=== PATIENT | male | born 1955 | race Caucasian/White ===

== ENCOUNTER 2017-11-09 13:41 | Emergency (ER) | payer SELFPAY ==
[~2017-11-09] VITALS: Ht 182.9 cm; Wt 103.0 kg
[2017-11-09] MEDS ORDERED: CEFTRIAXONE PMX 1GM/50ML 50 ML IVPB ONE (14:30)
[2017-11-09 14:48] LABS: BASOPHILS # (AUTO) 0.02 x10^3/uL (0-0.1); BASOPHILS % (AUTO) 1 % (0-1); EOSINOPHILS # (AUTO) 0.12 x10^3/uL (0-0.4); EOSINOPHILS % (AUTO) 3 % (1-7); LYMPHOCYTES # (AUTO) 0.81 x10^3/uL (1-3.4); LYMPHOCYTES % (AUTO) 23 % (22-44); MD NO; MEAN CORPUSCULAR HGB CONC 34.2 g/dL (33.2-36.2); MEAN CORPUSCULAR VOLUME 90.7 fL (81-97); MEAN PLATELET VOLUME 9.6 fL (7.4-10.4); MONOCYTES # (AUTO) 0.33 x10^3/uL (0.2-0.8); MONOCYTES % (AUTO) 10 % (2-9); NEUTROPHILS # (AUTO) 2.21 x10^3/uL (1.8-6.8); NEUTROPHILS % (AUTO) 63 % (42-75); PLATELET COUNT 118 x10^3/uL (130-400); RED CELL DISTRIBUTION WIDTH 13.4 % (9.4-14.8)
[2017-11-09 14:59] LABS: ALBUMIN 3.9 g/dL (3.4-5.0); ANION GAP 8 mmol/L (5-15); CHLORIDE 109 mmol/L (98-107)
[2017-11-09] MEDS ORDERED: CEFTRIAXONE PMX 1GM/50ML 50 ML ONE (15:29)
[2017-11-09 15:44] VITALS: BP 139/91
== END 2017-11-09 16:04 | disposition home or self-care (01) ==
LOC: ED 16:00
DX: S80.812A Abrasion, left lower leg, initial encounter (principal); M86.662 Other chronic osteomyelitis, left tibia and fibula; W19.XXXA Unspecified fall, initial encounter; Y93.89 Activity, other specified; Y92.009 Unspecified place in unspecified non-institutional (private) residence as the place of occurrence of the external cause; Y99.8 Other external cause status
CPT/HCPCS: 36415; 73590; 80048; 82040; 83605; 85025; 87040; 96374; 99285; J0696

== ENCOUNTER 2017-12-12 12:06 | Emergency (ER) | payer MEDICARE ==
[~2017-12-12] VITALS: Ht 182.9 cm; Wt 102.0 kg
[~2017-12-12 12:06] MED LIST: ASPI-496 PO; SULF1TAB24 PO
[2017-12-12 12:09] VITALS: BP 146/80
== END 2017-12-12 13:15 | disposition left against medical advice (07) ==
LOC: ED 13:09
DX: I87.2 Venous insufficiency (chronic) (peripheral) (principal)
CPT/HCPCS: 99281

== ENCOUNTER 2017-12-19 11:34 | Emergency (ER) | payer MEDICARE ==
[~2017-12-19] VITALS: Ht 182.9 cm; Wt 98.1 kg
[2017-12-19 11:35] VITALS: BP 148/90
[2017-12-19] MEDS ORDERED: BACITRACIN ZINC OINT 500U/GM, 0.9 GM ONE (12:46)
== END 2017-12-19 13:03 | disposition home or self-care (01) ==
LOC: ED 12:45
DX: L03.116 Cellulitis of left lower limb (principal)
CPT/HCPCS: 99283